=== PATIENT | female | born 1980 | race Caucasian/White ===

== ENCOUNTER 2016-09-27 20:34 | Emergency (ER) | payer SELFPAY ==
[2016-09-27 21:37] LABS: Blood, Urine Moderate (Negative); Glucose, Urine (Dipstick) Negative (Negative); Ketone, Urine Negative (Negative); Nitrite Negative (Negative); Protein, Urine (Dipstick) 30 mg/dL (Neg-Trace)
[2016-09-27 21:38] LABS: Bilirubin Negative (Negative)
[2016-09-27 21:44] LABS: Bacteria/HPF Rare-Few HPF (None Seen); Hyaline Casts/LPF 0-3 HYALINE CAST LPF (0-3 Hyaline); Squamous Epithelial None Seen HPF (0-3); WBC/HPF 0-3 HPF (0-3)
--- NOTE | 2016-09-27 22:47 | ERRECORD ---
[facility] EMERGENCY RECORD HPI FEVER (22:16 DHAM) CHIEF COMPLAINT: Patient presents for evaluation of fever, Measured maximum temperature 102-102.9 degrees, taken orally. HISTORIAN: History provided by patient, Pt started with fever to 102, 72 hours ago. She has had intermittent rigors and low back pain. Also c/o mild vaginal discharge and vaginal itching and right side earache. LOCATION: Unable to localize symptoms. QUALITY: Unable to describe the quality of the pain. IMMUNIZATION STATUS: Flu vaccine not up to date. SEVERITY: Current severity of pain rated as 0/10. TIME COURSE: Gradual onset of symptoms, 3, days priror to arrival, Symptoms are improving. ASSOCIATED WITH: No associated altered level of consicousness, No associated abdominal pain, Associated with chills, No associated comorbid Illnesses, No associated cough, No associated steroid use, No associated diarrhea, No associated headache, No associated infectious exposure, No associated joint pain, No associated myalgias, No associated rash, No associated sore throat, No associated inability to tolerate oral intake, No associated upper respiratory infection, No associated urinary tract infection signs or symptoms, No associated vomiting, very low back pain for 2 days. EXACERBATED BY: Patient's condition exacerbated by nothing. RELIEVED BY: Patient's condition relieved by nothing. ROS (22:22 DHAM) CONSTITUTIONAL: Historian reports chills, reports fever, denies lethargy, denies malaise, denies night sweats, denies weakness. EYES: Historian denies eye pain, denies eye redness, denies eye discharge, denies photophobia, denies vision changes. ENT: Historian denies dysphasia, reports otalgia, denies otorrhea, denies rhinorrhea, denies sinus pain, denies sore throat. CARDIOVASCULAR: Historian denies chest pain, denies dyspnea on exertion, denies exercise intolerance, denies syncope, denies palpitations. RESPIRATORY: Historian denies cough, denies shortness of breath, denies sputum. GI: Historian denies abdominal pain, denies constipation, denies diarrhea, denies nausea, denies vomiting. GENITOURINARY FEMALE: Historian denies dysuria, denies frequency, denies , denies urgency, reports vaginal discharge, reports vaginal itching. MUSCULOSKELETAL: Historian reports back pain, denies injury, denies joint redness, denies joint stiffness, denies joint swelling, denies neck pain. SKIN: Historian denies rash, denies skin changes, denies skin lesions. NEUROLOGIC: Historian denies confusion, denies dizziness, denies &a-1R&a+25V*p+0X*[id number]*c152B*c15G*c2P*p-0X&a-25V&a+1RName: Joan Mullen : 1980 F35 MedRec: [id number] AcctNum: [id number] Prepared: Sat Sep 27, 2016 22:51 by Interface Page 1 of 4 pMD [facility] EMERGENCY RECORD dysphasia, reports headache, denies mental status changes. ENDOCRINE: Historian denies polydipsia, denies polyuria. HEMO/LYMPHATIC: Historian denies abnormal blood clotting, denies easy bruising. ALLERGIC/IMMUNOLOGIC: Historian denies eczema, denies frequent infections, denies hives. NOTES: Leaving on a cruise tomorrow to the [facility]. PAST MEDICAL HISTORY (20:46 BMAD) MEDICAL HISTORY: , Past medical history includes ears, eye, nose and throat history, wears glasses. Notes: anemia s/p gastric bypass. REVIEWED 09-27-2016. FEMALE SURGICAL HISTORY: Surgical history of cholecystectomy, Date of surgery 05/2005, Surgical history of section, Notes: CS x2, Surgical history of gastric bypass, Date of surgery 05/2005, Surgical history of tubal ligation, Date of surgery 01/2007. REVIEWED 09-27-2016. SOCIAL HISTORY: Patient denies alcohol use, Patient denies drug use, Patient has no smoking history, Lives at home, with family. REVIEWED 09-27-2016. KNOWN ALLERGIES Penicillins Stadol CURRENT MEDICATIONS (20:43 BMAD) None VITAL SIGNS VITAL SIGNS: BP: 156/80, Pulse: 66, Resp: 18, Temp: 98.2 (Oral), Pain: 0, O2 sat: 98 on Room Air, Time: 09/27/2016 20:37. (20:37 BMAD) BP: 145/79, Pulse: 70, Resp: 18, Pain: 0, O2 sat: 97 on Room Air, Time: 09/27/2016 22:40. (22:40 SIJO) PHYSICAL EXAM CONSTITUTIONAL: Vital Signs Reviewed, Patient afebrile, Pulse normal, Blood pressure normal, Respiratory rate normal, Normal pulse oximetry, Patient appears non toxic, Patient appears pain free, Patient alert and oriented to person, place and time, Nursing notes reviewed. (22:26 DHAM) HEAD: Head exam included findings of head atraumatic, normocephalic. (22:26 DHAM) EYES: Eye exam included findings of eyelids normal to inspection, Pupils equally round and reactive to light, Extraocular muscles intact, Conjunctiva normal, Sclera normal, Eye exam included findings of anterior chamber clear. (22:26 DHAM) ENT: Ear exam normal, external ear normal, tympanic membranes normal, no foreign body, no drainage, no bleeding, hearing normal, Nose exam normal, no nasal deformity, no bleeding from nares, no bleeding from hypopharynx, no foreign body visualized, no septal hematoma, no septal necrosis, No turbinate mucosa discharge, Pharynx &a-1R&a+25V*p+0X*[id number]*c152B*c15G*c2P*p-0X&a-25V&a+1RName: Joan Mullen : 1980 F35 MedRec: [id number] AcctNum: [id number] Prepared: Mert Sep 27, 2016 22:51 by Interface Page 2 of 4 pMD [facility] EMERGENCY RECORD exam normal, not injected, no swelling, symmetrical, Uvula exam normal, midline, no edema, Tonsil exam normal, not enlarged, no exudates, Mouth exam normal, mucous membranes moist, no drooling, no lesions, no lacerations, no tongue elevation, teeth normal. (22:26 DHAM) NECK: Neck exam included findings of normal range of motion, Trachea midline, Thyroid normal, no meningeal signs, no cervical adenopathy, no tenderness, no contusions, no ecchymosis. (22:26 DHAM) RESPIRATORY CHEST: Respiratory exam included findings of no respiratory distress, Breath sounds clear, No wheezing, No rales, No rhonchi, Breath sounds not diminished, Chest exam included findings of chest movement symmetrical. (22:26 DHAM) CARDIOVASCULAR: Cardiovascular exam included findings of heart rate regular rate and rhythm, Heart sounds normal, normal S1, normal S2, no murmurs, no rub, no gallop. (22:26 DHAM) ABDOMEN FEMALE: Abdominal exam included findings of abdomen nontender, Bowel sounds normal, Liver normal, Spleen normal, no distension, no pulsatile masses, no peritoneal signs, no ventral hernia. (22:26 DHAM) GENITOURINARY FEMALE: External genitalia normal, Genitourinary exam included findings of external genitalia normal, vaginal mucosa normal, no discharge. (22:27 DHAM) PELVIC: Speculum exam normal, no active bleeding, no lesions, no lacerations, no discharge, cervix normal, just a hint of watery slightly white discharge in the vaginal vault, Bimanual exam normal, internal os closed, no cervical motion tenderness, no adnexal mass, uterus normal, Urethral exam normal, no blood at meatus, no lesions, no edema, no prolapse, Bladder exam normal, no distension, no tenderness, no masses, Escorted by Ana Tellez RN, cervix is completely normal appearing without cmt. (22:27 DHAM) BACK: Back exam included findings of normal inspection, range of motion normal, no tenderness, no costovertebral angle tenderness, no pain with straight leg raise. (22:26 DHAM) UPPER EXTREMITY: Upper extremity exam normal, Upper extremity exam included findings of inspection normal, no abrasions, no contusions, no deformity, no lacerations, Range of motion normal, Motor strength normal, Sensation intact, Brachial pulse normal, Radial pulse normal. (22:26 DHAM) LOWER EXTREMITY: Lower extremity exam normal, Lower extremity exam included findings of inspection normal, no abrasions, no contusions, no deformity, no lacerations, Range of motion normal, Motor strength normal, Sensation intact, Pedal pulse normal, Amy's negative, no edema, no calf tenderness. (22:26 DHAM) NEURO: Neuro exam findings include patient oriented to person, place and time, Speech normal, Gait normal, [place] coma scale 15, Memory normal, Cranial nerves intact, Deep tendon reflexes normal, no focal motor deficits, no focal sensory deficits. (22:26 DHAM) SKIN: Skin exam included findings of skin warm, dry, and normal in color, no rash. (22:26 DHAM) LYMPHATIC: Lymphatic exam normal, Lymphatic exam included findings of cervical nodes normal. (22:26 DHAM) &a-1R&a+25V*p+0X*[id number]*c152B*c15G*c2P*p-0X&a-25V&a+1RName: Joan Mullen : 1980 5 MedRec: [id number] AcctNum: [id number] Prepared: Sat Sep 27, 2016 22:51 by Interface Page 3 of 4 pMD [facility] EMERGENCY RECORD PSYCHIATRIC: Psychiatric exam included findings of patient oriented to person place and time, Normal affect, Judgment normal, Insight normal, Remote memory normal, Recent memory normal, Concentration normal, No suicidal ideations, No homicidal ideations. (22:26 DHAM) RADIOLOGYINTERPRETATION (22:29 DHAM) CHEST: Chest films negative, no infiltrates, no pneumothorax, no hemothorax, no masses, no cardiomegaly, no congestive heart failure, no effusion, no free air. DOCTOR NOTES (22:29 DHAM) TEXT: I see no indication of bacterial illness. I did send a VP3 and we have her cell number. I suspect that this has been a viral syndrome. I ordered a flu screen but she declined as it had been several days and if she has the flu, they won't let her on the cruise. PROBLEM LIST No recorded problems DIAGNOSIS (22:32 DHAM) FINAL: PRIMARY: viral syndrome. PRESCRIPTION No recorded prescriptions DISPOSITION PATIENT: Disposition Type: Discharge, Disposition: *Discharge Home. (22:32 DHAM) Patient left the department. (22:42 SIJO) Wilkes: SAGAR=CHANG Romano, Antelmo ORTEGA=MD Aaliyah, Marc BOLTON=CHANG Tellez, Rick &a-1R&a+25V*p+0X*[id number]*c152B*c15G*c2P*p-0X&a-25V&a+1RName: Joan Mullen : 1980 5 MedRec: [id number] AcctNum: [id number] Prepared: Sat Sep 27, 2016 22:51 by Interface Page 4 of 4 pMD MTDD
--- NOTE | 2016-09-27 22:53 | PICIS ---
[facility] EMERGENCY RECORD TRIAGE (20:42 BMAD) TRIAGE NOTES: C/O BACKACHE FEVER/CHILLS AND URINARY DISCAHRGE FOR A FEW DAYS. (20:42 BMAD) PATIENT: NAME: Joan Mullen, AGE: 35, GENDER: female, : Mon 1980, TIME OF GREET: Sat Sep 27, 2016 20:35, PREFERRED LANGUAGE: Sierra Leonean, ETHNICITY: Not or , ECODE BILLING MAP: [facility], SSN: [id number], Zip Code: [address], KG WEIGHT: 81.65, , , PERSON ID: [id number], PAYMENT: [employer] Self Pay, PCP: PATRIA. (20:42 BMAD) PHONE: . (20:44) COMPLAINT: FEVER/CHILLS. (20:42 BMAD) ADMISSION: URGENCY: 3 Urgent, ADMISSION SOURCE: Home, TRANSPORT: CAR, BED: ER -04. (20:42 BMAD) IMMUNIZATIONS: Flu vaccine not up to date, Tetanus not up to date, Pneumococcal vaccine not up to date, Notes: REVIEWED 09-27-2016. (20:46 BMAD) SIRS SCORING: Heart Rate 55-109 (0), Temp range 96.8-101.1 (0), respiratory rate 12-24 (0), Mental Status altered: no (0), Infection or Suspected Infection: No. (20:46 BMAD) PROVIDERS: TRIAGE NURSE: Antelmo Romano RN. (20:42 BMAD) VITAL SIGNS: BP 156/80, Pulse 66, Resp 18, Temp 98.2, (Oral), Pain 0, O2 Sat 98, on Room Air, Time 09/27/2016 20:37. (20:37 BMAD) PREVIOUS VISIT ALLERGIES: Penicillins, Stadol. (20:42 BMAD) Penicillins, Stadol. (20:46 BMAD) KNOWN ALLERGIES Penicillins Stadol CURRENT MEDICATIONS (20:43 BMAD) None VITAL SIGNS VITAL SIGNS: BP: 156/80, Pulse: 66, Resp: 18, Temp: 98.2 (Oral), Pain: 0, O2 sat: 98 on Room Air, Time: 09/27/2016 20:37. (20:37 BMAD) BP: 145/79, Pulse: 70, Resp: 18, Pain: 0, O2 sat: 97 on Room Air, Time: 09/27/2016 22:40. (22:40 SIJO) NURSING ASSESSMENT: GENITOURINARY (21:33 SIJO) CONSTITUTIONAL: Patient arrives ambulatory, Gait steady, History obtained from patient, Patient appears comfortable, Patient cooperative, Patient alert, Oriented to person, place and time, Skin warm, Skin dry, Skin normal in color, Mucous membranes pink, Mucous membranes moist, Patient is well-groomed, c/o vaginal discharge, back pain, and earache - fever and chills. GENITOURINARY FEMALE: no associated urinary complaints, Associated with vaginal discharge, small amount, white discharge, no associated vaginal bleeding, no associated vaginal foreign body, no associated complaints of painful intercourse, no urinary catheter present, Not , per patient. &a-1R&a+25V*p+0X*[id number]*c152B*c15G*c2P*p-0X&a-25V&a+1RName: Joan Mullen : 1980 F35 MedRec: [id number] AcctNum: [id number] Prepared: Sat Sep 27, 2016 22:57 by Interface Page 1 of 7 pMD [facility] EMERGENCY RECORD ABDOMEN: Abdomen soft, non-tender, no associated nausea, no associated vomiting, no associated diarrhea. NURSING PROCEDURE: DISCHARGE NOTE (22:39 SIJO) DISCHARGE: Patient discharged to home, ambulating without assistance, family driving, accompanied by //partner, Simple or moderate discharge teaching performed, Take medications as directed, Above person(s) verbalized understanding of discharge instructions and follow-up care, Patient treated and evaluated by physician, Notes: Discharge instructions reviewed and signed with good understanding. BELONGINGS: Belongings remain with patient, Valuables remain with patient. NURSING PROCEDURE: NURSE NOTES NURSES NOTES: Patient examined by physician, Notes: Dr Fischer discussed need for pelvic and urine cath with pt. (20:47 SIJO) Patient assisted to bathroom with steady gait. (21:38 SIJO) NURSING PROCEDURE: PELVIC EXAM (21:34 SIJO) PELVIC EXAM: Pelvic exam indicated for pelvic pain, Pelvic exam indicated for vaginal discharge, Pelvic exam performed by Dr. Fischer, Pelvic exam assisted by Ana RN, Exam findings include, Exam findings include no bleeding, Exam findings include cervix closed, No interventions needed, Notes: VPIII collected and delivered to lab - Dr Fischer states he does not wish to collect GC/Chlamydia cultures. NURSING PROCEDURE: URINE COLLECTION (21:34 SIJO) URINE COLLECTION FEMALE: Urine collected by straight cath, using an 8fr catheter kit, output amount (mL) 15 ml, urine yellow in color, and clear, no sediment noted, Specimen collected, labeled in the presence of the patient and sent to lab, Specimen obtained for culture labeled in the presence of the patient and sent to lab. ORDER DETAILS Order Name: CATH STRAIGHT ED, Status: Done, Time: 21:28 09/27/2016, User: SAGAR, - Ordered for: MD Fischer Darren, - Entered by: CHANG Tellez, Rick - Sat Sep 27, 2016 21:19, - Quantity: 1, Order Name: Influenza A&B Ag Screen, Status: Canceled, Time: 21:35 09/27/2016, User: CHE, - Ordered for: MD Fischer Darren, - Entered by: MD Fischer Darren - Sat Sep 27, 2016 21:28, - Reason for Cancel: pt refused, - Quantity: 1, Order Name: Urinalysis w/ Rflx Microscopic, Status: Active, Time: 21:28 09/27/2016, User: SHANNON, - Ordered for: MD Fischer Darren, &a-1R&a+25V*p+0X*x5433R*c152B*c15G*c2P*p-0X&a-25V&a+1RName: Sebas Joan : 1980 F35 MedRec: [id number] AcctNum: [id number] Prepared: Sat Sep 27, 2016 22:57 by Interface Page 2 of 7 pMD [facility] EMERGENCY RECORD - Entered by: MD Fischer Darren - Sat Sep 27, 2016 21:28, - Quantity: 1, Order Name: VP3, Status: Active, Time: 21:28 09/27/2016, User: SHANNON, - Ordered for: MD Fischer Darren, - Entered by: MD Fischer Darren - Sat Sep 27, 2016 21:28, - Quantity: 1, Order Name: XR Chest Pa & Lat STANDARD, Status: Active, Time: 21:28 09/27/2016, User: SHANNON, - Ordered for: MD Fischer Darren, - Entered by: MD Fischer Darren - Sat Sep 27, 2016 21:28, - Quantity: 1. HPI FEVER (22:16 DHAM) CHIEF COMPLAINT: Patient presents for evaluation of fever, Measured maximum temperature 102-102.9 degrees, taken orally. HISTORIAN: History provided by patient, Pt started with fever to 102, 72 hours ago. She has had intermittent rigors and low back pain. Also c/o mild vaginal discharge and vaginal itching and right side earache. LOCATION: Unable to localize symptoms. QUALITY: Unable to describe the quality of the pain. IMMUNIZATION STATUS: Flu vaccine not up to date. SEVERITY: Current severity of pain rated as 0/10. TIME COURSE: Gradual onset of symptoms, 3, days priror to arrival, Symptoms are improving. ASSOCIATED WITH: No associated altered level of consicousness, No associated abdominal pain, Associated with chills, No associated comorbid Illnesses, No associated cough, No associated steroid use, No associated diarrhea, No associated headache, No associated infectious exposure, No associated joint pain, No associated myalgias, No associated rash, No associated sore throat, No associated inability to tolerate oral intake, No associated upper respiratory infection, No associated urinary tract infection signs or symptoms, No associated vomiting, very low back pain for 2 days. EXACERBATED BY: Patient's condition exacerbated by nothing. RELIEVED BY: Patient's condition relieved by nothing. ROS (22:22 [facility]) CONSTITUTIONAL: Historian reports chills, reports fever, denies lethargy, denies malaise, denies night sweats, denies weakness. EYES: Historian denies eye pain, denies eye redness, denies eye discharge, denies photophobia, denies vision changes. ENT: Historian denies dysphasia, reports otalgia, denies otorrhea, denies rhinorrhea, denies sinus pain, denies sore throat. CARDIOVASCULAR: Historian denies chest pain, denies dyspnea on exertion, denies exercise intolerance, denies syncope, denies palpitations. RESPIRATORY: Historian denies cough, denies shortness of breath, &a-1R&a+25V*p+0X*[id number]*c152B*c15G*c2P*p-0X&a-25V&a+1RName: Joan Mullen : 1980 F35 MedRec: [id number] AcctNum: [id number] Prepared: Sat Sep 27, 2016 22:57 by Interface Page 3 of 7 pMD [facility] EMERGENCY RECORD denies sputum. GI: Historian denies abdominal pain, denies constipation, denies diarrhea, denies nausea, denies vomiting. GENITOURINARY FEMALE: Historian denies dysuria, denies frequency, denies , denies urgency, reports vaginal discharge, reports vaginal itching. MUSCULOSKELETAL: Historian reports back pain, denies injury, denies joint redness, denies joint stiffness, denies joint swelling, denies neck pain. SKIN: Historian denies rash, denies skin changes, denies skin lesions. NEUROLOGIC: Historian denies confusion, denies dizziness, denies dysphasia, reports headache, denies mental status changes. ENDOCRINE: Historian denies polydipsia, denies polyuria. HEMO/LYMPHATIC: Historian denies abnormal blood clotting, denies easy bruising. ALLERGIC/IMMUNOLOGIC: Historian denies eczema, denies frequent infections, denies hives. NOTES: Leaving on a cruise tomorrow to the [facility]. PAST MEDICAL HISTORY (20:46 [facility]) MEDICAL HISTORY: , Past medical history includes ears, eye, nose and throat history, wears glasses. Notes: anemia s/p gastric bypass. REVIEWED 09-27-2016. FEMALE SURGICAL HISTORY: Surgical history of cholecystectomy, Date of surgery 05/2005, Surgical history of section, Notes: CS x2, Surgical history of gastric bypass, Date of surgery 05/2005, Surgical history of tubal ligation, Date of surgery 01/2007. REVIEWED 09-27-2016. SOCIAL HISTORY: Patient denies alcohol use, Patient denies drug use, Patient has no smoking history, Lives at home, with family. REVIEWED 09-27-2016. PHYSICAL EXAM CONSTITUTIONAL: Vital Signs Reviewed, Patient afebrile, Pulse normal, Blood pressure normal, Respiratory rate normal, Normal pulse oximetry, Patient appears non toxic, Patient appears pain free, Patient alert and oriented to person, place and time, Nursing notes reviewed. (22:26 DHAM) HEAD: Head exam included findings of head atraumatic, normocephalic. (22:26 DHAM) EYES: Eye exam included findings of eyelids normal to inspection, Pupils equally round and reactive to light, Extraocular muscles intact, Conjunctiva normal, Sclera normal, Eye exam included findings of anterior chamber clear. (22:26 DHAM) ENT: Ear exam normal, external ear normal, tympanic membranes normal, no foreign body, no drainage, no bleeding, hearing normal, Nose exam normal, no nasal deformity, no bleeding from nares, no bleeding from hypopharynx, no foreign body visualized, no septal hematoma, no septal necrosis, No turbinate mucosa discharge, Pharynx exam normal, not injected, no swelling, symmetrical, Uvula exam &a-1R&a+25V*p+0X*j3932B*c152B*c15G*c2P*p-0X&a-25V&a+1RName: Joan Mullen : 1980 F35 MedRec: [id number] AcctNum: [id number] Prepared: Sat Sep 27, 2016 22:57 by Interface Page 4 of 7 pMD [facility] EMERGENCY RECORD normal, midline, no edema, Tonsil exam normal, not enlarged, no exudates, Mouth exam normal, mucous membranes moist, no drooling, no lesions, no lacerations, no tongue elevation, teeth normal. (22:26 DHAM) NECK: Neck exam included findings of normal range of motion, Trachea midline, Thyroid normal, no meningeal signs, no cervical adenopathy, no tenderness, no contusions, no ecchymosis. (22:26 DHAM) RESPIRATORY CHEST: Respiratory exam included findings of no respiratory distress, Breath sounds clear, No wheezing, No rales, No rhonchi, Breath sounds not diminished, Chest exam included findings of chest movement symmetrical. (22:26 DHAM) CARDIOVASCULAR: Cardiovascular exam included findings of heart rate regular rate and rhythm, Heart sounds normal, normal S1, normal S2, no murmurs, no rub, no gallop. (22:26 DHAM) ABDOMEN FEMALE: Abdominal exam included findings of abdomen nontender, Bowel sounds normal, Liver normal, Spleen normal, no distension, no pulsatile masses, no peritoneal signs, no ventral hernia. (22:26 DHAM) GENITOURINARY FEMALE: External genitalia normal, Genitourinary exam included findings of external genitalia normal, vaginal mucosa normal, no discharge. (22:27 DHAM) PELVIC: Speculum exam normal, no active bleeding, no lesions, no lacerations, no discharge, cervix normal, just a hint of watery slightly white discharge in the vaginal vault, Bimanual exam normal, internal os closed, no cervical motion tenderness, no adnexal mass, uterus normal, Urethral exam normal, no blood at meatus, no lesions, no edema, no prolapse, Bladder exam normal, no distension, no tenderness, no masses, Escorted by Ana Tellez RN, cervix is completely normal appearing without cmt. (22:27 DHAM) BACK: Back exam included findings of normal inspection, range of motion normal, no tenderness, no costovertebral angle tenderness, no pain with straight leg raise. (22:26 DHAM) UPPER EXTREMITY: Upper extremity exam normal, Upper extremity exam included findings of inspection normal, no abrasions, no contusions, no deformity, no lacerations, Range of motion normal, Motor strength normal, Sensation intact, Brachial pulse normal, Radial pulse normal. (22:26 DHAM) LOWER EXTREMITY: Lower extremity exam normal, Lower extremity exam included findings of inspection normal, no abrasions, no contusions, no deformity, no lacerations, Range of motion normal, Motor strength normal, Sensation intact, Pedal pulse normal, Amy's negative, no edema, no calf tenderness. (22:26 DHAM) NEURO: Neuro exam findings include patient oriented to person, place and time, Speech normal, Gait normal, David coma scale 15, Memory normal, Cranial nerves intact, Deep tendon reflexes normal, no focal motor deficits, no focal sensory deficits. (22:26 DHAM) SKIN: Skin exam included findings of skin warm, dry, and normal in color, no rash. (22:26 DHAM) LYMPHATIC: Lymphatic exam normal, Lymphatic exam included findings of cervical nodes normal. (22:26 DHAM) PSYCHIATRIC: Psychiatric exam included findings of patient &a-1R&a+25V*p+0X*n4613W*c152B*c15G*c2P*p-0X&a-25V&a+1RName: Joan Mullen : 1980 F35 MedRec: [id number] AcctNum: [id number] Prepared: [facility] Sep 27, 2016 22:57 by Interface Page 5 of 7 pMD [facility] EMERGENCY RECORD oriented to person place and time, Normal affect, Judgment normal, Insight normal, Remote memory normal, Recent memory normal, Concentration normal, No suicidal ideations, No homicidal ideations. (22:26 DHAM) EVENTS TRANSFER: Triage to Emergency Emergency Room -04. (Sat Sep 27, 2016 20:42 BMAD) Emergency Emergency Room -04 to -05. (21:07 SIJO) Removed from Emergency Emergency Room -05. (22:42 SIJO) RADIOLOGYINTERPRETATION (22:29 DHAM) CHEST: Chest films negative, no infiltrates, no pneumothorax, no hemothorax, no masses, no cardiomegaly, no congestive heart failure, no effusion, no free air. O2SAT INTERPRETATION (22:28 DHAM) O2SAT: Single pulse oximetry, Oxygen saturation 98%, on room air, Oxygen saturation interpretation: Normal, No intervention required. DOCTOR NOTES (22:29 DHAM) TEXT: I see no indication of bacterial illness. I did send a VP3 and we have her cell number. I suspect that this has been a viral syndrome. I ordered a flu screen but she declined as it had been several days and if she has the flu, they won't let her on the cruise. PROBLEM LIST No recorded problems DIAGNOSIS (22:32 DHAM) FINAL: PRIMARY: viral syndrome. DISPOSITION PATIENT: Disposition Type: Discharge, Disposition: *Discharge Home. (22:32 DHAM) Patient left the department. (22:42 SIJO) INSTRUCTION (22:35 DHAM) DISCHARGE: VIRAL SYNDROME (CHILD). SPECIAL: Aleve 2 twice a day for 2 days. Return here or see your physician (or the ship physician) for fever over 24 hours more, or sooner or any other concerns. PRESCRIPTION No recorded prescriptions IMAGING *DISCHARGE INSTRUCTIONS RECEIPT: Image captured from scanner. (22:40 SIJO) *SUPPLY CHARGE SHEET: Image captured from scanner. (22:41 SIJO) &a-1R&a+25V*p+0X*s4830P*c152B*c15G*c2P*p-0X&a-25V&a+1RName: Joan Mullen : 1980 F35 MedRec: [id number] AcctNum: [id number] Prepared: [facility] Sep 27, 2016 22:57 by Interface Page 6 of 7 pMD [facility] EMERGENCY RECORD ADMIN (22:46 DHAM) DIGITAL SIGNATURE: MD Fischer Darren. RESULTS LABORATORY: Urinalysis w/ Rflx Microscopic Collection DT: [facility] Sep 27, 2016 21:36, Color Yellow , Range (Yellow), Clarity Slightly Cloudy , Range (Clear), Specific [place], Urine 1.025 , Range (1.005-1.030), pH, Urine 7.0 , Range (5.0-9.0), Leukocyte Negative , Range (Negative), Nitrite Negative , Range (Negative), *Protein, Urine (Dipstick) 30 - H mg/dL, Range (Neg-Trace), Glucose, Urine (Dipstick) Negative mg/dL, Range (Negative), Ketone, Urine Negative mg/dL, Range (Negative), *Urobilinogen 2.0 - H mg/dL, Range (0.2-1.0), Bilirubin Negative , Range (Negative), , *Blood, Urine Moderate - H , Range (Negative). (21:46 SIJO) Urine Microscopic Collection DT: [facility] Sep 27, 2016 21:36, *RBC/HPF 11-20 - H HPF, Range (0-3), WBC/HPF 0-3 HPF, Range (0-3), Squamous Epithelial None Seen HPF, Range (0-3), Bacteria/HPF Rare-Few HPF, Range (None Seen), Hyaline Casts/LPF 0-3 HYALINE CAST LPF, Range (0-3 Hyaline). (22:12 DHAM) Urinalysis w/ Rflx Microscopic Collection DT: [facility] Sep 27, 2016 21:36, Color Yellow , Range (Yellow), Clarity Slightly Cloudy , Range (Clear), Specific [place], Urine 1.025 , Range (1.005-1.030), pH, Urine 7.0 , Range (5.0-9.0), Leukocyte Negative , Range (Negative), Nitrite Negative , Range (Negative), *Protein, Urine (Dipstick) 30 - H mg/dL, Range (Neg-Trace), Glucose, Urine (Dipstick) Negative mg/dL, Range (Negative), Ketone, Urine Negative mg/dL, Range (Negative), *Urobilinogen 2.0 - H mg/dL, Range (0.2-1.0), Bilirubin Negative , Range (Negative), , *Blood, Urine Moderate - H , Range (Negative). (22:12 [facility]) Wilkes: SAGAR=CHANG Romano, Antelmo ORTEGA=MD Aaliyah, Marc BOLTON=CHANG Tellez, Rick &a-1R&a+25V*p+0X*u6811J*c152B*c15G*c2P*p-0X&a-25V&a+1RName: Joan Mullne : 1980 F35 MedRec: [id number] AcctNum: [id number] Prepared: Mert Sep 27, 2016 22:57 by Interface Page 7 of 7 pMD MTDD
--- NOTE | 2016-09-28 13:01 | RAD ---
CHEST 2 VIEWS: Date: 09/27/16 Comparison is made with a 05/22/05 study. FINDINGS: The heart remains normal in size and the lungs are clear. No infiltrate or effusion seen. There is n o sign of pneumonia. The mediastinum appears normal and the trachea is midline. IMPRESSION: No acute findings. POS: HOME
== END 2016-09-27 22:39 | disposition home or self-care (01) ==
LOC: BURERS 20:34
DX: B34.9 Viral infection, unspecified (principal)
CPT/HCPCS: 51701; 71020; 81003; 81015; 87480; 87510; 87660; A4353

== ENCOUNTER 2020-06-22 07:41 | Outpatient (CLI) | payer OTHER ==
[2020-06-22 08:29] LABS: #Basophils 0.1 thou/uL (0.0-0.2); #Eosinphils 0.2 thou/uL (0.0-0.7); #Lymphocytes 1.9 thou/uL (1.20-3.40); #Monocytes 0.4 thou/uL (0.11-0.59); #Neutrophils 3.1 thou/uL (1.40-6.50); %Basophils 1.7 % (0.0-1.0); %Eosinophils 3.5 % (0.0-10.0); %Lymphocytes 34.1 % (21.0-51.0); %Monocytes 6.4 % (0.0-10.0); %Neutrophils 54.3 % (42.0-75.0); Hemoglobin 12.8 g/dL (12.0-16.0); Mean Corpuscular HGB CONC 30.1 g/dL (32.0-36.0); Mean Corpuscular Hemoglobin 26.7 pg (27.0-31.0); Mean Corpuscular Volume 88.6 fL (78.0-98.0); Mean Platelet Volume 8.4 fL (7.4-10.4); Platelet Count 280 thou/uL (130-400); RBC Distribution Width 12.5 % (11.5-14.5); Red Blood Cell (RBC) Count 4.81 mill/uL (4.20-5.40); White Blood Cell (WBC) Count 5.6 thou/uL (4.8-10.8)
[2020-06-22 08:43] LABS: ALT (SGPT) 15 U/L (8-55); AST (SGOT) 15 U/L (5-34); Albumin 4.3 g/dL (3.5-5.0); Alkaline Phosphatase 75 U/L (40-110); Anion Gap 16 mmol/L (10-20); BUN (Urea Nitrogen) 13 mg/dL (7.0-18.7); Bilirubin, Total 0.4 mg/dL (0.2-1.2); Calc. Creatinine Clearance 0 mL/min (70-130); Carbon Dioxide 22 mmol/L (22-29); Cardiac Risk 3.2 (Less than 4.5); Chloride 104 mmol/L (98-107); Cholesterol 205 mg/dl (< 200 Desired); Estimated GFR-MDRD Greater than 90; Globulin 2.7 g/dL (2.4-3.5); Glucose 84 mg/dL (70-105); HDL Cholesterol 65 mg/dL (>60 Neg Risk); LDL Cholesterol, Calculated 107 mg/dL; Potassium 4.3 mmol/L (3.5-5.1); Sodium 138 mmol/L (136-145); Triglycerides 164 mg/dL (Less than 150)
== END 2020-06-22 07:42 | disposition home or self-care (01) ==
LOC: BURLAB 07:41
PROVIDERS: ATTEND Physician Assistant
DX: D50.9 Iron deficiency anemia, unspecified (principal); Z68.32 Body mass index [BMI] 32.0-32.9, adult
CPT/HCPCS: 36415; 80050; 80061